=== PATIENT | female | born 1960 | race Two or more races ===

== ENCOUNTER 2019-06-22 09:39 | Outpatient (CLI) | payer OTHER | END 2019-06-22 10:12 | disposition home or self-care (01) | LOC: SONOGRAMA 09:39 | DX: E04.1 Nontoxic single thyroid nodule (principal) ==

== ENCOUNTER 2021-11-30 11:27 | Outpatient (CLI) | payer OTHER | END 2021-11-30 11:37 | disposition home or self-care (01) | LOC: SONOGRAMA 11:27 | PROVIDERS: ATTEND Pathology Anatomic Pathology & Clinical Pathology | DX: E04.1 Nontoxic single thyroid nodule (principal) ==